=== PATIENT | male | born 1985 | race American Indian/Alaskan Native ===

== ENCOUNTER 2017-07-12 02:48 | Emergency (ER) | payer OTHER, MEDICAID ==
[2017-07-12 02:48] VITALS: BMI 27.3
[2017-07-12 02:57] VITALS: O2SAT 98
--- NOTE | 2017-07-12 03:41 | ED PDOC ---
Arrival/HPI - General Historian: Patient - General Chief Complaint: Back Pain Time Seen by Provider: 07/12/17 02:51 - History of Present Illness Narrative History of Present Illness (Text): 07/12/17 03:15 Patient is a 31 year old male with a past medical history of sickle cell trait presenting to the ED with a complaint of low back pain. The pain started in the afternoon yesterday while he was running. Patient states that his back "locked up" and he has had severe pain ever since. This happened to him once before a few years ago. This pain is similar to the previous episode. At that time he was treated with a "pain killer and muscle relaxer". He went to [facility] in the afternoon. At that time, labwork was done which was normal except a WBC 18.5. Troponins were negative. He had a Chest CT Angio to rule out PE. Patient came to [facility] ED because he felt that [facility] only focused on his chest pain and only discharged him on Ibuprofen 600mg. He attempted to take the Ibuprofen but he was unable to sleep due to the back pain. He is short of breath when talking, but patient states that it is secondary to the pain. The pain is very sharp and exacerbated with movement. If he is laying still, he does not have any difficulty breathing but when he attempts to take a deep breath, the pain in his low back is worsened. He is starting to have numbness in his legs b/l. He denies any trauma. Denies fevers, chills, nausea, vomiting, diarrhea, constipation, chest pain, abdominal pain, headache, difficulty with urination, loss of bowels/bladder or LOC. Denies tobacco, alcohol or drug use. (EdgarVictoriano) Past Medical History - Provider Review Nursing Documentation Reviewed: Yes - Past Medical History Past Medical History: No Previous - Hematological/Oncological Hx Sickle Cell Trait: Yes - Psychiatric Hx Substance Use: No - Past Surgical History Past Surgical History: No Previous - Suicidal Assessment Feels Threatened In Home Enviroment: No Family/Social History - Physician Review Nursing Documentation Reviewed: Yes Family/Social History: Hypertension (mother) Smoking Status: Never Smoked Hx Alcohol Use: Yes Frequency of alcohol use: Socially Hx Substance Use: No Hx Substance Use Treatment: No Allergies/Home Meds Allergies/Adverse Reactions: Allergies No Known Allergies Allergy (Verified 07/12/17 02:51) Review of Systems - Physician Review All systems were reviewed & negative as marked: Yes - Review of Systems Constitutional: Normal Eyes: Normal ENT: Normal Respiratory: Normal Cardiovascular: Normal Gastrointestinal: Normal Genitourinary Male: Normal Musculoskeletal: Back Pain (low back pain) Skin: Normal Neurological: Other (tingling sensation down legs b/l) Endocrine: Normal Hemo/Lymphatic: Normal Psychiatric: Normal Physical Exam Vital Signs Reviewed: Yes Temperature: Afebrile Blood Pressure: Hypertensive Pulse: Regular Respiratory Rate: Normal Appearance: Positive for: Non-Toxic, Uncomfortable Pain Distress: None Mental Status: Positive for: Alert and Oriented X 3 - Systems Exam Head: Present: Atraumatic, Normocephalic Pupils: Present: PERRL Extroacular Muscles: Present: EOMI Conjunctiva: Present: Normal Mouth: Present: Moist Mucous Membranes Neck: Present: Normal Range of Motion Respiratory/Chest: Present: Clear to Auscultation, Good Air Exchange. No: Respiratory Distress, Accessory Muscle Use Cardiovascular: Present: Regular Rate and Rhythm, Normal S1, S2. No: Murmurs Abdomen: Present: Normal Bowel Sounds. No: Tenderness, Distention, Peritoneal Signs, Rebound, Guarding Back: Present: Midline Tenderness (L5-S1 region ). No: CVA Tenderness, Paraspinal Tenderness, Pain with Leg Raise Upper Extremity: Present: Normal Inspection, Normal ROM, NORMAL PULSES. No: Cyanosis, Edema Lower Extremity: Present: Normal Inspection, NORMAL PULSES. No: Edema, CALF TENDERNESS Neurological: Present: GCS=15, CN II-XII Intact, Speech Normal Skin: Present: Warm, Dry, Normal Color. No: Rashes Lymphatic: No: Cervical Adenopathy Psychiatric: Present: Alert, Oriented x 3, Normal Insight, Normal Concentration Vital Signs Temp Pulse Resp BP Pulse Ox 07/12/17 02:54 98.9 F 81 16 176/99 H 98 Medical Decision Making Re-evaluation Time: 04:57 Reassessment Condition: Improving,but remains with symptoms - RAD Interpretation Creative Director: Radiologist ED Course and Treatment: Impression: Pt seen and evaluated with medical billing associate. Aware and agrees with HPI, clinical findings, plan, and management. Pt, whose past medical history includes sickle cell trait, presented for lower back pain and chest pain since yesterday afternoon after running. Pt seen at [facility] same complaint, had unremarkable workup, negative CTA. Plan: -- CT Lumbar Spine w/o contrast -- Flexeril -- Toradol -- Reassess and disposition (Janes Mullen) 07/12/17 03:50 CT of lumbar spine ordered Patient given Flexeril/Toradol 07/12/17 04:57 CT of lumbar spine negative Patient was sleeping in bed upon entering the room. Patient states that where his pain was a 10 upon arrival, it has improved to a 5. Discussed with patient that he will be discharged home with Flexeril and he should take the Ibuprofen that he filled earlier today along with it for pain. He is to follow up with his PMD in 2-3 days. If he has any new or worsening symptoms, including but not limited to loss of bowels/bladder or paralysis. Patient states that he understands and agrees with discharge plan. He has no questions at this time. (Victoriano Hernández) - RAD Interpretation Narrative RAD Interpretations (Text): 07/12/17 04:[address] 1. No fracture. 2. If back pain persists, consider MRI for further evaluation. (Victoriano Hernández) Radiology Orders: 07/12/17 03:12 LUMBAR SPINE W/O CONTRAST [CT] Stat - Medication Orders Current Medication Orders: Discontinued Medications Cyclobenzaprine HCl (Flexeril) 10 mg PO STAT STA Stop: 07/12/17 03:53 Last Admin: 07/12/17 04:11 Dose: 10 mg Ketorolac Tromethamine (Toradol) 30 mg IM ONCE ONE Stop: 07/12/17 03:53 Last Admin: 07/12/17 04:11 Dose: 30 mg MAR Pain Assessment Document 07/12/17 04:11 IT (Rec: 07/12/17 04:19 IT [id number]) Pain Reassessment Is this a pain reassessment? No Sleep Is patient sleeping during reassessment? No Presence of Pain Presence of Pain Yes Pain Scale Used Pain Scale Used Numeric Location Left, Right or Bilateral Bilateral IM Administration Charges Document 07/12/17 04:11 IT (Rec: 07/12/17 04:19 IT [id number]) Injection Site MAR Injection Site Left Gluteus Clifford Charges for Administration # of IM Administrations 1 Disposition/Present on Arrival - Present on Arrival Any Indicators Present on Arrival: No History of DVT/PE: No History of Uncontrolled Diabetes: No Urinary Catheter: No History of Decub. Ulcer: No History Surgical Site Infection Following: None - Disposition Have Diagnosis and Disposition been Completed?: Yes Disposition Time: 05:02 Patient Plan: Discharge - Disposition Diagnosis: Spasm of lumbar paraspinous muscle Disposition: HOME/ ROUTINE Condition: IMPROVED Discharge Instructions (ExitCare): Muscle Spasms (DC) Prescriptions: Cyclobenzaprine [Cyclobenzaprine HCl] 10 mg PO TID PRN #15 tab PRN Reason: Muscle Spasm Forms: [facility] (Tristanian)
--- NOTE | 2017-07-12 04:40 | CT ---
EXAM: CT Lumbar Spine Without Intravenous Contrast CLINICAL HISTORY: 31 years old, male; Pain; Low back pain TECHNIQUE: Axial computed tomography images of the lumbar spine without intravenous contrast. All CT scans at this facility use one or more dose reduction techniques, viz.: automated exposure control; ma/kV adjustment per patient size (including targeted exams where dose is matched to indication; i.e. head); or iterative reconstruction technique. Coronal and sagittal reformatted images were created and reviewed. COMPARISON: No relevant prior studies available. FINDINGS: Limitations: Motion artifact - mild. Vertebrae: No acute fracture. Discs/spinal canal/neural foramina: No significant spinal canal stenosis. Soft tissues: Unremarkable. Lungs: Minimal atelectasis. Gallbladder and bile ducts: Gallstones. Vicarious excretion of contrast. Kidneys and ureters: Contrast within renal collecting system and bladder. Faint linear calcification or contrast within left kidney. IMPRESSION: 1. No fracture. 2. If back pain persists, consider MRI for further evaluation. 3. Incidental/non-acute findings are described above.
[2017-07-12 05:21] VITALS: BP 147/77; PULSE 88; RESP 17; TEMP 98.2
== END 2017-07-12 05:21 | disposition home or self-care (01) ==
LOC: ED 02:48
DX: M62.830 Muscle spasm of back (principal); D57.3 Sickle-cell trait
CPT/HCPCS: 72131; 96372; 99282; J1885